=== PATIENT | female | born 1990 | race Caucasian/White ===

== ENCOUNTER 2019-04-23 13:49 | Outpatient (REF) | payer MEDICAID, SELFPAY ==
--- NOTE | 2019-04-23 11:30 | PAPFT_PTH ---
PATIENT: Kayla Laguerre LOC: [facility] U#:[id number] AGE/SX: 29/F ROOM: RE04/23/[address]: SARA Villeda : 1990 BED: DIS: 04/23/2019 SPEC #: [id number] RECD: 04/23/19 18:01 STATUS: BETTE RENanette #: [id number] JAYY: 04/23/19 11:[address]: Haylee Vargas DEPT: [facility] Cytology RECD BY: Ignacia Harris ENTERED: 04/23/19 18:03 SP TYPE: PAPFT OTHR DR: Korey Dowd Tissues: 1 - CX/ENDOCX FOR PAP SMEARS Procedures: PAP THIN PREP/UVM Screening HPV DNA PROBE Comments: [id number]
[2019-04-24 13:21] LABS: Chlamydia Result Negative (Negative); GC Result Negative (Negative)
== END 2019-04-23 14:09 ==
LOC: LBN 13:49
PROVIDERS: PCP Internal Medicine; Visit Provider Nurse Practitioner Family
DX: Z11.3 Encounter for screening for infections with a predominantly sexual mode of transmission (principal); Z12.4 Encounter for screening for malignant neoplasm of cervix; Z11.51 Encounter for screening for human papillomavirus (HPV)
CPT/HCPCS: 87491; 87591; 88142; 87624

== ENCOUNTER 2020-08-15 09:00 | Emergency (ER) | payer MEDICAID, SELFPAY ==
[2020-08-15 09:07] VITALS: BP 120/78; PULSE 77; RESP 16; TEMP 36.7; O2SAT 99
--- NOTE | 2020-08-15 09:07 | ED.GENADUL_ITS ---
Discharge Plan Disposition Patient Disposition: HOME Condition: Stable Discharge Details Clinical Impression: Tick bite Primary Care Provider: Korey Dowd ED Provider: Amanda Hernandez Home Meds and New Rx's Prescriptions: New doxycycline hyclate 100 mg tablet 100 mg PO BID 14 Days Qty: 28 RF: 0 Continued Nexplanon 68 MG implant 68 mg SQ ONCE Qty: 1 RF: 0 Discharge Instructions Instructions: Lyme Disease (ED), Tick Bite (ED) Additional Instructions: Keep wound clean and dry. If you notice any surrounding redness, pain or swelling, you can apply topical antibiotic ointment. Your tick bite may not have resulted in Lyme disease and your rash may have been a local inflammatory reaction. You were given instruction regarding further information on Lyme disease. Your prescription has been sent electronically to your pharmacy. Call the pharmacy to make sure your prescription is ready before pickup. Take the pr escription as directed. Follow-up with your primary care doctor in 1 week for reevaluation and for results of your tick and Lyme panel blood test drawn today in the emergency department. You can also call the hospital or log on to the patient portal on the computer for your results. Return to the emergency department with any worsening or new concerning symptoms such as fever, chills, worsening rash or any other concerns. Discharge Data Discharge Physician: Amanda Hernandez Medical Decision Making 30-year-old female presents for evaluation of tick bite with ring developing around site with concern for Lyme disease. Vitals are within normal limits. Patient appears comfortable and nontoxic. She has a 1 mm crust at previous site of tick bite. There is no evidence of erythema migrans such as bull's eye rash and no evidence of cellulitis or trauma noted to area around her tick bite. Patient showed a picture on her cell phone of the ring that was present around the tick bite a few days ago and it appears purplish in color but not erythematous and does not appear classically co nsistent with a bull's-eye rash. Considering that she did develop a ring around the site, will cover with doxycycline. She admits to hives with amoxicillin and abdominal cramps with tetracycline in the past. She states she would rather take doxycycline over amoxicillin for this. She was advised to take the antibiotic with food and to start a probiotic. Her urine test here was negative. A tick and Lyme panel was drawn. She was advised to follow-up with her primary care doctor for reevaluation and results of her test. Usual and customary return precautions given prior to discharge. Medical Records Medical records reviewed: Yes I reviewed the patient's medical records. HPI General Mode of arrival: ambulatory . Date/Time Provider Initiated Documentation: 08/15/20 09:07 . Limitations to Documentation: no limitations . Information obtained by: patient . HPI Narrative: Patient is a 30-year-old female presents for evaluation for tick bite with red ring around the bite site. Patient states 5 days ago she noticed a tick on her left thigh which was present for a short amount of time, most likely less than an hour. She states she was able to remove the tick completely intact and shortly after that she noticed a discolored ring developing around the rash. She states since then the ring has near resolved and she denies any fever, chills, body aches or other rash. She states she is concerned about the possibility of Lyme disease. Related Data Home Medications Medication Instructions Recorded Confirmed Nexplanon 68 mg SQ ONCE #1 implant 09/07/08/15/20 doxycycline hyclate 100 mg PO BID 14 Days #28 tab 08/15/20 Previous Rx's Medication Instructions Recorded doxycycline hyclate 100 mg PO BID 14 Days #28 tab 08/15/20 Allergies Allergy/AdvReac Type Severity Reaction Status Date / Time amoxicillin Allergy Hives Unverified 08/15/20 09:12 tetracycline AdvReac Intermediate VOMITING Verified 08/15/20 09:12 Review of Systems All systems reviewed & are unremarkable except as noted in HPI and below Constitutional Constitutional: Reports as per HPI, Denies chills and Denies fever(s) Eyes Eyes: Denies blurry vision ENT Ears, Nose, Mouth, and Throat: Denies dizziness, Denies sore throat and Denies throat swelling Cardiovascular Cardiovascular: Denies chest pain and Denies dyspnea Respiratory Respiratory: Denies cough and Denies dyspnea Gastrointestinal Gastrointestinal: Denies abdominal pain, Denies diarrhea and Denies vomiting Genitourinary Genitourinary: Denies hematuria and Denies dysuria Musculoskeletal Musculoskeletal: Denies back pain and Denies numbness Integumentary/Breasts Skin/Breast: Reports lesions and Reports rash Neurologic Neurologic: Denies dizziness, Denies localized weakness and Denies numbness Allergic/Immunologic Allergic/Immunologic: Denies throat swelling [facility] Medical History (Updated 08/15/20 @ 09:38 by Amanda Hernandez DO) Asthma Hx of abnormal cervical Pap smear Hx HSIL on paps in 2007 and 2009 [place]/Bxs both benign. 2016 Nl Pap. Family History Maternal Aunt Lung cancer Paternal aunt age 52. Maternal Aunt Lymphoma Paternal aunt late 40's Brother Hepatitis C Other Mental disorder Social History Smoking/Tobacco Use Status: Current every day Tobacco Type: cigarettes Smoking risk assessment performed?: Yes Alcohol Intake: never Drug use: Occasionally Substance use type: marijuana Do you feel safe at home: Yes Do you feel safe in your relationship?: Yes Female Reproductive History Menstrual control method: implanted History History 1 Para 1 Hx # Term Pregnancies Multiple births Hx # Pregnancies Ectopic pregnancies AB induced Hx Number of Living Children AB spontaneous Exam Const General: cooperative, healthy appearing and no acute distress HENMT Head: normal to inspection Mouth: oral mucosae normal Eyes General: appearance normal, both eyes and all related structures Neck Neck: normal visual inspection Resp Effort & Inspection: normal respiratory effort and able to speak in complete sentences Cardio Rate: regular rate Skin General skin exam: no rashes or lesions noted Neuro General: patient alert, patient awake and patient oriented x3 Motor: muscle tone normal throughout Extrem Upper/lower leg/hip images: 1. 1 mm pinpoint nontender crust consistent with recent tick bite. There is no surrounding erythema, edema, ecchymosis, induration, fluctuance, rash or les ions. Other: Normal range of motion of bilateral upper and lower extremities. Psych Appearance: grossly normal Affect: normal affect
--- OUTSIDE RECORDS SUMMARY | 2020-08-15 09:07 | XMS_ITS | Encounter Summary ---
:1990 Author Care Team Providers Name Role Phone Nida Rodas NP Primary Care Provider Unavailable Reason for Visit None recorded. Assessment and Plan 1. Puncture wound of foot Though the sole of the foot do es not look infected in an abundance of caution the dirty penetration of the adan l I went ahead and wrote for Augmentin will go ahead and get a foot x-ray to rule ou t foreign body and fracture we will go ahead and give a tetanus shot today ? Augmentin 875 mg-125 mg ta blet ? XR, foot, 2 view ? Boostrix Tdap 2.5 Lf unit- 8 mcg-5 Lf/0.5 mL intramuscular syringe 2. Viral upper respiratory tract infection ? ProAir HFA 90 mcg/actuatio n aerosol inhaler 3. Seasonal allergy 4. Asthma Continue antihistamine also wi ll do albuterol inhaler patient states that her symptoms are controlled on this we a lso talked about smoking patient would like to quit smoking. See smoking below 5. Smoker Patient has a history of smoki ng again my smoking handout she would like to quit. I went ahead and prescribed a cat hs worth of the 7 patches. Patient smokes 10 cigarettes a day quitting smoking would help her asthma ? nicotine 7 mg/24 hr daily transdermal patch Discussion Note: None recorded.Patient educational handouts: No information available. Plan of Care Reminders Provider Appointments None ? ? recorded. Lab None ? ? recorded. Referral None ? ? recorded. Procedures None ? ? recorded. Surgeries None ? ? recorded. Imaging XR, Foot, 08/05/2020 [facility] 2 [facility] Radiolo gy (Internal) Medications Name Start Date ? ? amoxicillin 875 mg-potassium clavulanate 125 mg tablet ? TAKE ONE TABLET BY MOUTH EVERY 12 HOURS FOR 7 DAYS fluticasone propionate 50 mcg/actuation nasal spray,nicole spension ? Henry 1 spray every day by intranasal route. loratadine ? nicotine 7 mg/24 hr daily transdermal patch ? APPLY ONE PATCH TO THE SKIN EVERY DAY ProAir HFA 90 mcg/actuation aerosol inhaler ? INHALE TWO PUFFS BY MOUTH EVERY 4 TO 6 HOURS NEEDE D Notes: pt. not taking the above at this time Medications Administered None recorded. Vitals Weight Blood Pressure 159 lbs 4 oz 114/66 mm[Hg] Results Lab Results None recorded. Allergies Code Code System Name Reaction Severity Onset Sulfa (Sulfonamide Abdominal Pain ? ? Antibiotics) 04351 RxNorm Tetracycline Nausea ? ? 7996495 RxNorm Wheat ? ? ? Problems Name Status Onset Date Source ? Hereditary Coagulation Factor Deficiency Active ? History Nicotine Dependence Active ? History Depressive Disorder Active ? History Allergic Rhinitis Active ? History Adult Health Examination Active ? 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 History Cervical Papanicolaou Smear Procedures Date Name Performed by ? 09/02/2009 Biopsy of Cervix Information not avai lable 08/05/2020 XR, Foot, 2 View [facility] ([facility]) [address] [place] [address] (Work Place) Vaccine List Vaccine Type Tdap 08/05/2020?0.5 mL Social History Tobacco Smoking Status Heavy Tobacco Smoker (1/2 Notes: 1 pack per 4 PPD) days Hand Dominance Right Animal exposure? Y Live alone or with others? with others Notes: Fat her and Daughter Alcohol intake None Notes: rare use Smokeless Tobacco Status Never used smokeless tobacco Blind or serious difficulty N Notes: we ars glasses seeing Hard of hearing or deaf in one or N both ears? Have you had close contact with N someone who travelled internationally and was ill? Most Recent Tobacco Use Screening 08/05/2020 E-cigarette/Vape Status Never used electronic cigarettes Caffeine intake Moderate Notes: 1-2 drinks daily Drug Use N Have you traveled N internationally? Exercise level Moderate Tobacco-years of use 20 Functional Status No Impairment. Past Encounters 08/05/2020 Puncture Wound of Foot; Viral Upper Resp iratory Tract Infection; Seasonal Allergy; Asthma; Smoker Rey Augustin MD: [address] [place] [address], Ph. History of Present Illness Note: <p>Patient has a puncture wound in left foot on Saturday the . Stepped on a nail that went in between 03/28 -2 in deep. Patient states it is better. Patient needs a tetanus update.</p ><p>
</p><p>Patient has a history of seasonal allergies for which she takes loratadine consistently recently she has been sandblasting her house but also does smoke she would like to quit. She states that her asthma when she gets exacerbations is alleviated by as needed albuterol she would like a refill on this. She like to try nicotine replacement therapy.
</p>Review of Systems: ROS as noted in the HPI Review of Systems None recorded. Physical Exam ? Notes: <p>Exam of the sole of her f oot there is no redness no swelling there is some discoloration that look like mild bruising at the site of penetration good function of the foot no stre aking no pus no fluctuance
</p>
--- OUTSIDE RECORDS SUMMARY | 2020-08-15 09:07 | XMS_ITS ---
:1990 Author Care Team Providers Name Role Phone DEVIN COHN NP Primary Care Provider Unavailable Allergies Code Code System Name Reaction Severity Status Onset Sulfa Abdominal Pain ? Active ? (Sulfonamide Antibiotics) 68710 RxNorm Tetracycline Nausea ? Active ? 8358005 RxNorm Wheat ? ? Active ? Medications Name Status Start Date Stop Date ? ? amoxicillin 500 mg capsule Completed 06/30/201507/09 1 (one) Cap: Three times a day amoxicillin 875 mg-potassium clavulanate 125 mg tablet Active ? Not available TAKE ONE TABLET BY MOUTH EVERY 12 HOURS FOR 7 DAYS azithromycin 250 mg tablet Completed 03/16/201603/21 1 (one) Tablet: ud Cipro XR 1,000 mg tablet,extended release Completed 200511/15/2005 1 (one) Tablet ER 24HR: Daily clindamycin HCl 300 mg capsule Completed ? 1 clotrimazole-betamethasone 1 Completed ? 03/2017 %-0.05 % topical cream fluticasone propionate 50 Active ? Not av ailable mcg/actuation nasal spray,suspension ibuprofen 800 mg tablet Completed 05/16/2006 05/16/19 07 1 (one) Tablet: TID/PRN loratadine Active ? Not available Mirena 20 mcg/24 hours (6 yrs) 52 mg intrauterine device Complet ed 12/06/2009 03/29/2014 1 (one) IUD: daily nicotine 14 mg/24 hr daily transdermal patch Completed 09/201503/16/2016 1 (one) Patch 24HR: daily nicotine 7 mg/24 hr daily transdermal patch Active ? Not available APPLY ONE PATCH TO THE SKIN EVERY DAY paroxetine 10 mg tablet Completed 12/06/2009 03/29/19 15 1 (one) Tablet: daily Plan B 0.75 mg tablet Completed 05/16/2006 03/29/2014 1 (one) Tablet: Q 12 hours ProAir HFA 90 mcg/actuation aerosol inhaler Active ? Not available INHALE TWO PUFFS BY MOUTH EVERY 4 TO 6 HOURS NEEDED terbinafine HCl 250 mg tablet Completed ? terconazole 0.4 % vaginal Completed ? 2017 cream Wellbutrin SR 100 mg tablet, 12 hr sustained-release Completed 03/10/2015 03/16/2016 1 (one) Tablet ER 12HR Tablet ER 12HR: bid - twice daily Zyban 150 mg tablet,extended release Completed 03/10/2015 03/10/2015 1 (one) Tablet ER 12HR Tablet ER 12HR: bid - twice daily Notes: pt. not taking the above at this time Problems Name Status Onset Date Source ? Hypokalemia Unknown ? History Overweight Unknown ? History Hereditary Coagulation Factor Deficiency Active ? History Nicotine Dependence Active ? History Depressive Disorder Active ? History Acute Sinusitis Unknown ? History Acute Maxillary Sinusitis Unknown ? Histor y Allergic Rhinitis Active ? History Disorder of Upper Respiratory System Unknown ? History Acute Exacerbation of Asthma Unknown ? His tory Dizziness and Giddiness Unknown ? History Contraception Care Management Unknown ? Hi story Adult Health Examination Active ? History Procedure by Method Unknown ? History Education Unknown ? 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 History Cervical Papanicolaou Smear Procedures Date Name Performed by ? 09/02/2009 Biopsy of Cervix Information not avai lable 08/05/2020 XR, Foot, 2 View [facility] (Internal) [address] [place] [address] (Work Place) Results Lab Results Date Name Specimen Result Interpretation Description Value Range Status Address ? 06/14/2020 SARS CoV 2 RNA SWAB ? Covid-19 negative negativ e Final [place] (COVID-19), RT-PCR Count ry QL, [facility] demonstrator-PCR, [facility] Lab Respiratory Result (Inte rnal): Specimen [address] ? ? SWAB ? Performing jaci [address] ? Final N orth Lab uvmm lab [facility] (Internal) : [address] 03/11/2020 SARS CoV 2 RNA SWAB ? Covid-19 negative negativ e Final [place] (COVID-19), Result Count ry QL, [place] [facility] demonstrator-PCR, Hosp ital Lab Respiratory (Inte rnal): Specimen [address] ? ? SWAB ? Performing the broad ? Final No rth Lab institute [facility] (Internal) : [address] t 05/08/2017 Venipuncture BLD ? Venpn* ? ? Final [facility] (Internal) : [address] t 05/08/2017 T4, Free, S ? Ft4 0.99 NG/dL 0.78-2.19 [facility] Serum NG/dL [facility] (Internal) : [address] t 05/08/2017 TSH, Serum or S ? Tsh 1.00 0.47-4.68 Fin al [place] Plasma u[IU]/mL u[IU]/mL [facility] (Internal) : [address] 05/08/2017 BMP, Serum or S ? g/r 78 mg/dL 74-106 Jumana l [place] Plasma mg/dL [facility] (Internal) : [address] t ? ? S ? Bun 8 mg/dL 7-17 Final [place] mg/dL [facility] (Internal) : [address] t ? ? S ? Crea 0.80 mg/dL 0.52-1.04 Final Nor th mg/dL [facility] (Internal) : [address] t ? ? S ? Ca 9.3 mg/dL 8.4-10.2 Final [place] mg/dL [facility] (Internal) : [address] t ? ? S ? Na 142 mmol/L 137-145 Final [place] mmol/L [facility] (Internal) : [address] t ? ? S ? K 4.2 mmol/L 3.5-5.1 Final [place] mmol/L [facility] (Internal) : [address] t ? ? S ? Cl 105 mmol/L 98-107 Final [place] mmol/L [facility] (Internal) : [address] t ? ? S ? Tco2 25.0 22.0-30.0 Final [place] mmol/L mmol/L [facility] (Internal) : [address] t Past Encounters 08/05/2020 Puncture Wound of Foot; Viral Upper Resp iratory Tract Infection; Seasonal Allergy; Asthma; Smoker Rey Augustin MD: [address] [place] [address], Ph. 03/26/2019 Viral Upper Respiratory Tract Infection Fernando Lindo ENVIRONMENTAL SERVICE AIDE: [address] [place] [address] [place] [address], Ph. Social History Tobacco Smoking Status Heavy Tobacco Smoker (1/2 PPD) Note s: 1 pack per 4 days Vaccine List Vaccine Type Tdap 08/05/2020?0.5 mL Plan of Care Reminders Provider Appointments None ? ? recorded. Lab None ? ? recorded. Referral None ? ? recorded. Procedures None ? ? recorded. Surgeries None ? ? recorded. Imaging None ? ? recorded. Vitals 08/05/2020 08:00AM Acute 20 Weight Blood Pressure 72.23 kg 114/66 mm[Hg] 03/26/2019 09:20AM Office [facility] 40 Height 165.1 cm 12/17/2018 08:40AM Acute 20 Height Weight BMI Blood Pressure 165.1 cm 62.6 kg 23 kg/m2 118/68 mm[Hg] 12/23/2017 08:40AM Acute 20 Height Weight BMI Blood Pressure 165.1 cm 60.55 kg 22.2 kg/m2 102/60 mm[Hg] 05/08/2017 Weight Blood Pressure 62.91 kg 112/68 mm[Hg] 03/16/2016 Weight Blood Pressure 61.33 kg 118/70 mm[Hg] 06/30/2015 Blood Pressure 100/60 mm[Hg] 03/10/2015 Height Weight Blood Pressure 163.83 cm 68.45 kg 104/60 mm[Hg] 06/18/2014 Weight Blood Pressure 68.86 kg 106/68 mm[Hg] 03/29/2014 Height Weight Blood Pressure 166.37 cm 62.14 kg 124/68 mm[Hg] 12/06/2009 Weight Blood Pressure 65.18 kg 110/70 mm[Hg] 06/28/2009 Weight Blood Pressure 67.59 kg 100/60 mm[Hg] 05/16/2006 Weight Blood Pressure 69.85 kg 104/74 mm[Hg] 11/16/2005 Blood Pressure 110/70 mm[Hg] 11/01/2005 Height Weight Blood Pressure 165.1 cm 71.67 kg 102/70 mm[Hg]
[2020-08-15] MEDS: Doxycycline Hyclate 100 MG CAP PO (09:52)
[2020-08-16 12:40] LABS: Lyme Ab w Rflx to Lyme Confirm Negative (Negative)
[2020-08-17 01:33] LABS: Anaplasma phagocytophilum Negative (Negative); B. miyamotoi PCR Negative (Negative); Babesia divergens/MO-1 Negative (Negative); Babesia duncani Negative (Negative); Babesia microti Negative (Negative); Ehrlichia chaffeensis Negative (Negative); Ehrlichia ewingii/canis Negative (Negative); Ehrlichia muris eauclairensis Negative (Negative)
== END 2020-08-15 10:04 | disposition home or self-care (01) ==
PROVIDERS: Emergency Provider Physician Assistant; PCP Internal Medicine
DX: S70.362A Insect bite (nonvenomous), left thigh, initial encounter (principal); W57.XXXA Bitten or stung by nonvenomous insect and other nonvenomous arthropods, initial encounter
CPT/HCPCS: 36415; 81025; 87798; 99283; 86618

== ENCOUNTER 2020-10-17 13:02 | Outpatient (REF) | payer MEDICAID, SELFPAY ==
[2020-10-18 15:17] LABS: Chlamydia Result Negative (Negative); GC Result Negative (Negative)
== END 2020-10-17 13:03 | disposition home or self-care (01) ==
LOC: LBN 13:02
PROVIDERS: PCP Internal Medicine; Visit Provider Advanced Practice Midwife
DX: N89.8 Other specified noninflammatory disorders of vagina (principal); Z11.3 Encounter for screening for infections with a predominantly sexual mode of transmission; Z01.419 Encounter for gynecological examination (general) (routine) without abnormal findings
CPT/HCPCS: 87491; 87591; 87480; 87510; 87660

== ENCOUNTER 2023-04-03 09:41 | Emergency (ER) | payer MEDICAID, SELFPAY ==
[2023-04-03] VITALS (15 sets, daily range): BP systolic 101–118; BP diastolic 70–84; PULSE 62–84; RESP 14–16; TEMP 36.6–37.2; O2SAT 84–100
--- NOTE | 2023-04-03 09:47 | W.ED.GENAD ---
HPI General MELISSA: 4 Date/Time Provider Initiated Documentation: 04/03/23 09:47. Limitations to Documentation: no limitations. Information obtained by: patient. HPI Narrative: 33-year-old female with past medical history including migraines presents for evaluation of persistent headache, vomiting and dysuria. Reports that she last tested positive for COVID 10 days ago. She reports since then her COVID symptoms have improved, but she has been having migraine headaches associated with nausea and vomiting. She reports 4 days of dysuria. She has been taking Azo and cranberry. Denies any urgency or frequency. She is concerned that she is dehydrated because she does not feel like she is urinating enough. Denies any fever. Denies any abdominal pain. Reports a dull backache. Related Data Home Medications Medication Instructions Recorded Confirmed etonogestrel 68 mg subdermal 68 mg subdermal ONCE ##1 10/20/20 09/05/22 implant (Nexplanon) albuterol sulfate 90 mcg/actuation 2 puff inhalation Q4H PRN 08/01/22 09/05/22 aerosol inhaler (ProAir HFA) loratadine 10 mg tablet (Allergy 10 mg PO DAILY 08/01/22 09/05/22 Relief (loratadine)) fluticasone propionate 50 2 spray intranasal DAILY 30 days 09/05/22 09/05/22 mcg/actuation nasal #16 grams spray,suspension (Allergy Relief (fluticasone)) ondansetron 4 mg disintegrating 4 mg PO Q6H PRN nausea and 04/03/23 tablet vomiting #30 tabs Previous Rx's Medication Instructions Recorded fluticasone propionate 50 2 spray intranasal DAILY 30 days 09/05/22 mcg/actuation nasal #16 grams spray,suspension (Allergy Relief (fluticasone)) ondansetron 4 mg disintegrating 4 mg PO Q6H PRN nausea and 04/03/23 tablet vomiting #30 tabs Allergies Allergy/AdvReac Type Severity Reaction Status Date / Time amoxicillin Allergy Hives Unverified 09/05/22 08:59 wheat Allergy vomiting, Verified 09/05/22 08:59 migraine tetracycline AdvReac Intermediate VOMITING Verified 09/05/22 08:59 milk AdvReac Verified 09/05/22 08:59 PFSH All Active Problems (Updated 04/03/23 @ 11:55 by Nasim Mosley MD) Vomiting (Acute) Headache (Acute) Dysuria (Acute) TMJ (dislocation of temporomandibular joint) (Acute) Sinus pressure (Acute) Tobacco dependence (Acute) Vaginal discharge (Acute) Wheat intolerance (Acute) History of migraine (Acute) Screen for STD (sexually transmitted disease) (Acute) Tick bite (Acute) Contraception (Acute 07/14/15) Medical History History of Papanicolaou smear of cervix Hereditary coagulation factor deficiency Depressive disorder Allergic rhinitis Asthma Surgical History History of excision of lesion biopsy - unspecified Family History Maternal Aunt Lung cancer Paternal aunt age 52. Maternal Aunt Lymphoma Paternal aunt late 40's Brother Hepatitis C Substance abuse Mother Diabetes Maternal Aunt Breast cancer Father Retinal tear of both eyes Other Mental disorder Social History Smoking/Tobacco Use Status: Current every day Tobacco Type: cigarettes Smoking packs per day: 0.5 Smoking cigarettes per day: 10.0 Smoking risk assessment performed?: Yes Alcohol Intake: current Alcohol Intake frequency: holidays/special occasions only Alcohol type: beer Drug use: Daily Substance use type: marijuana Details: at night to sleep Housing: house Do you feel safe at home: Yes Do you feel safe in your relationship?: Yes Female Reproductive History Menstrual control method: implanted History History 1 Para 1 Hx # Term Pregnancies Multiple births Hx # Pregnancies Ectopic pregnancies AB induced Hx Number of Living Children AB spontaneous Exam Narrative Exam Narrative: Review of Systems: All systems reviewed & are unremarkable except as noted in HPI and below Well-developed, no acute distress NACT PERRL, normal conjunctiva Mucous membranes moist RRR Unlabored respiratory effort, clear breath sounds bilaterally Nondistended abdomen, nontender Extremities w/o deformity, no cyanosis, no edema No rashes or lesions. no focal neurologic deficits Appropriate mood and affect Medical Decision Making Emergent evaluation of vomiting and dysuria. Initial differential includes UTI, viral syndrome, migraine headache. Will give medication for symptoms, check urinalysis and give IV fluids given the progressive vomiting. Labs reviewed. No electrolyte derangement noted. Her urinalysis not overtly infected. She she is nitrite positive, but I think that this is likely secondary to the Azo. I advised that if she continues to have symptoms, she should follow-up with her PCP for repeat urinalysis. She is discharged with a prescription for Zofran. Continue hydration, Motrin and Tylenol as needed. Medical Records Medical records reviewed: Yes I reviewed the patient's medical records. Lab Data Lab results reviewed: Yes I reviewed the patient's lab results. Quality:[facility] Health Related Social Needs: No Data to Display Discharge Plan Disposition Patient Disposition: Home Discharge Details Clinical Impression: Dysuria, Headache, Vomiting Primary Care Provider: Sanya [place] ED Provider: Nasim Mosley Home Meds and New Rx's Prescriptions: New ondansetron 4 mg tablet,disintegrating 4 mg PO Q6H PRN (Reason: nausea and vomiting) Qty: 30 0RF No Action fluticasone propionate [Allergy Relief (fluticasone)] 50 mcg/actuation spray,suspension 2 spray intranasal DAILY 30 Days Qty: 16 12RF Rx Instructions: administer into each nostril Nexplanon 68 mg implant 68 mg subdermal ONCE Qty: 1 loratadine [Allergy Relief (loratadine)] 10 mg tablet 10 mg PO DAILY albuterol sulfate [ProAir HFA] 90 mcg/actuation HFA aerosol inhaler 2 puff inhalation Q4H PRN Discharge Instructions Instructions: General Headache (ED) Additional Instructions: TAKE MEDICATIONS NEEDED DRINK LOTS OF WATER FOLLOW UP WITH PCP Stand Alone Forms: Work Release
[2023-04-03] MEDS: Ketorolac 10 MG TAB PO (10:07)
[2023-04-03] MEDS: Prochlorperazine 10 MG TAB PO (10:07)
[2023-04-03] MEDS: diphenhydrAMINE 25 MG CAP PO (10:08)
[2023-04-03] MEDS: Normal Saline 1,000 ML 1000 ML IV (10:23)
[2023-04-03 10:35] LABS: Anion Gap 8.7 mmol/L (3-11); BUN 12 mg/dL (7-18); CO2 26.3 mmol/L (21.0-32.0); CREATININE 0.9 mg/dL (0.55-1.02); Calcium 9.1 mg/dL (8.5-10.1); Chloride 105 mmol/L (98-107); Glucose 92 mg/dL (74-106); Sodium 140 mmol/L (136-145)
[2023-04-03 11:28] LABS: Bilirubin Negative (Negative); Blood Negative (Negative); Clarity Cloudy (Clear); Glucose Negative (Negative); Ketones 40 mg/dL (Negative); Leukocyte Esterase Small (Negative); Nitrite Positive (Negative); pH 7.5 (5-8)
[2023-04-03 11:32] LABS: Bacteria Moderate HPF (Negative); C & S Indicated? No/Sq. Contamination; Casts Negative LPF (Negative); Crystals Negative HPF (Negative); Epithelial Cells Moderate HPF (Negative); Mucus Negative (Negative); RBC 0-2 HPF (0-2)
== END 2023-04-03 12:34 | disposition home or self-care (01) ==
PROVIDERS: Emergency Provider Emergency Medicine; PCP Registered Nurse
DX: R30.0 Dysuria (principal); R51.9 Headache, unspecified; R11.2 Nausea with vomiting, unspecified; Z72.0 Tobacco use; J45.909 Unspecified asthma, uncomplicated; Z79.899 Other long term (current) drug therapy; Z86.16 Personal history of COVID-19
CPT/HCPCS: 80048; 81025; 96360; 99284; 81003; 81015